=== PATIENT | female | born 1980 ===

== ENCOUNTER 2018-11-16 12:59 | Inpatient (IN) | payer OTHER ==
[~2018-11-16] VITALS: Ht 162.6 cm; Wt 67.1 kg
[2018-11-16] MEDS ORDERED: PRENATAL TABLE1 EAC1 PO (13:43)
[2018-11-16] MEDS ORDERED: HYDROXYCHLOROQ200 MG PO (13:49)
[2018-11-19] MEDS ORDERED: OXYCONTIN10 M1 PO (10:38)
== END 2018-11-19 16:17 | DRG 786 ==
LOC: LDR 12:59 → OB/GYN 12:59
PROVIDERS: ADMIT Specialist
PROC: 4A1HXCZ Monitoring of Products of Conception, Cardiac Rate, External Approach (ICD-10-PCS; 2018-11-16)
PROC: 10D00Z1 Extraction of Products of Conception, Low, Open Approach (ICD-10-PCS; principal; 2018-11-16 15:00)
DX: O64.8XX0 Obstructed labor due to other malposition and malpresentation, not applicable or unspecified (principal); O60.14X0 Preterm labor third trimester with preterm delivery third trimester, not applicable or unspecified; Z3A.36 36 weeks gestation of pregnancy; Z37.0 Single live birth